=== PATIENT | female | born 1990 | race American Indian/Alaskan Native ===

== ENCOUNTER 2018-01-23 00:38 | Emergency (ER) | payer SELFPAY ==
[2018-01-23 00:45] VITALS: BP 141/97
--- NOTE | 2018-01-23 01:34 | XRay Report ---
FINAL REPORT PROCEDURE: XR FOREARM RT TECHNIQUE: RIGHT forearm radiographs, AP and lateral views. CPT 93996 HISTORY: trauma COMPARISON: No prior studies are available for comparison. FINDINGS: Fracture (s) and/or Dislocation(s): None . Joint space(s): Normal . Soft tissues: Normal . Bone mineralization: Normal . Foreign bodies: None . IMPRESSION: Normal Examination
[2018-01-23] MEDS ORDERED: ULTRAM ONE (04:08)
[2018-01-23] MEDS ORDERED: ULTRAM PO ONE (04:14)
--- NOTE | 2018-01-23 04:52 | Emergency Department Report ---
ED Upper Extremity Inj HPI - General Chief Complaint: Extremity Injury, Upper Stated Complaint: ARM PAIN Time Seen by Provider: 01/23/18 04:44 Source: patient Mode of arrival: Ambulatory Limitations: No Limitations - History of Present Illness Initial Comments: 2 hours prior to arrival, a femoral lies or fell on top of the patient's right forearm. She is right-hand dominant. Came to the ER for evaluation. No past history of injury or surgery to arm. She is able to move her right arm, but it does hurt. - Related Data Allergies Allergy/AdvReac Type Severity Reaction Status Date / Time methylprednisolone Allergy Hives Verified 01/23/18 00:46 [From Solu-Medrol] Penicillins Allergy Hives Verified 01/23/18 00:46 sulfamethoxazole Allergy Hives Verified 01/23/18 00:46 [From Bactrim] trimethoprim [From Bactrim] Allergy Hives Verified 01/23/18 00:46 ED Review of Systems ROS: Stated complaint: ARM PAIN Other details as noted in HPI Musculoskeletal: joint swelling, arthralgia, myalgia ED Past Medical Hx - Past Medical History Previous Medical History?: No - Surgical History Past Surgical History?: No - Social History Smoking Status: Never Smoker Substance Use Type: None ED Physical Exam - General Limitations: No Limitations General appearance: alert, in no apparent distress - Head Head exam: Present: atraumatic, normocephalic - Extremities Exam Extremities exam: Present: other (right wrist and shoulder with normal range of motion. Right elbow with limited range of motion. Proximal forearm contusion/ swelling appreciated. Patient is able pronate and supinate. Right hand is neurovascularly intact. No obvious deformity of the right elbow.) ED Course Vital Signs 01/23/18 01/23/18 00:37 00:46 Temperature 98.8 F 98.8 F Pulse Rate 79 80 Respiratory 16 16 Rate Blood Pressure 141/97 141/97 O2 Sat by Pulse 98 98 Oximetry ED Medical Decision Making - Radiology Data Radiology results: report reviewed, image reviewed - Medical Decision Making 27-year-old female with no significant past medical history that presents to the ER with right forearm pain. Imaging is unremarkable. Right hand is neurovascularly intact. Likely patient has suffered a contusion. She has been educated on rice therapy. Has been provided a work excuse for the next 24 hours. Patient cleared for discharge. - Differential Diagnosis contusion, dislocation, subluxation, strain or fracture Critical care attestation.: If time is entered above; I have spent that time in minutes in the direct care of this critically ill patient, excluding procedure time. ED Disposition Clinical Impression: Contusion Disposition: DC-01 TO HOME OR SELFCARE Is pt being admited?: No Does the pt Need Aspirin: No Condition: Stable Instructions: Contusion in Adults (ED) Additional Instructions: Take 975 mg Tylenol and/or 800 mg Motrin every 6 hours as needed for pain relief. Apply ice to your arm. Try to rest it over the next couple of days. If symptoms don't improve, follow-up with the [facility] for reevaluation. Referrals: [facility] [Outside] - 3-5 Days
== END 2018-01-23 04:56 | disposition home or self-care (01) ==
LOC: ED 00:38
DX: S50.11XA Contusion of right forearm, initial encounter (principal); Z88.8 Allergy status to other drugs, medicaments and biological substances; Z88.0 Allergy status to penicillin; Z88.2 Allergy status to sulfonamides; W19.XXXA Unspecified fall, initial encounter; Y93.89 Activity, other specified; Y92.89 Other specified places as the place of occurrence of the external cause; Y99.8 Other external cause status
CPT/HCPCS: 99283

== ENCOUNTER 2020-04-24 17:38 | Emergency (ER) | payer SELFPAY ==
[2020-04-24] MEDS ORDERED: CYCLOBENZAPRINE 10 MG TAB PO ONE (18:05)
[2020-04-24] MEDS ORDERED: HYDROcodone/ACETAMINOPHEN 5-325 MG TAB PO ONE (18:05)
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
[2020-04-24 19:09] VITALS: BP 124/83
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
== END 2020-04-24 21:00 | disposition home or self-care (01) ==
LOC: ED 17:38
DX: S16.1XXA Strain of muscle, fascia and tendon at neck level, initial encounter (principal); S09.90XA Unspecified injury of head, initial encounter; M54.5 Low back pain; Z88.2 Allergy status to sulfonamides; Z88.0 Allergy status to penicillin; Z88.8 Allergy status to other drugs, medicaments and biological substances; Z79.899 Other long term (current) drug therapy; V49.59XA Passenger injured in collision with other motor vehicles in traffic accident, initial encounter; Y92.410 Unspecified street and highway as the place of occurrence of the external cause; Y93.89 Activity, other specified; Y99.8 Other external cause status
CPT/HCPCS: 70450; 72100; 72125; 72170